=== PATIENT | female | born 1965 | race Caucasian/White ===

== ENCOUNTER 2022-05-24 17:57 | Observation (INO) ==
[2022-05-24 19:58] LABS: Bacteria,Urine Few per hpf (None-Few); Bilirubin,Urine Moderate (Negative); Blood,Urine Negative (Negative); Clarity,Urine Clear (Clear); Color,Urine Dark-Yellow (Yellow); Glucose,Urine (UA) Normal (Normal); Ketones,Urine Negative (Negative); Leukocyte Esterase,Urine Negative (Negative); Mucus,Urine Few per lpf (None-Few); Nitrite,Urine Negative (Negative); PH,Urine 6.5 pH Units (5.0-8.0); Protein,Urine 30 mg/dL (Neg-Trace); Specific Gravity,Urine > 1.030 (1.010-1.025); Squamous Epithelial Cell,Urine Few per hpf (None-Few); Urobilinogen,Urine Normal (Normal)
[2022-05-24 20:03] LABS: Basophils % 0.2 %; Eosinophils % 0.2 %; Hematocrit 42.4 % (35.3-44.9); Hemoglobin 14.2 g/dL (11.5-15.4); Immature Granulocytes % 0.4 % (0-4); Lymphocytes # 1.2 K/mcL (0.6-4.6); Lymphocytes % 10.1 %; Mean Corpuscular HGB Conc 33.5 g/dL (31.6-35.5); Mean Corpuscular Hemoglobin 32.4 pg (28.0-33.3); Mean Corpuscular Volume 96.8 fL (83.0-100.0); Monocytes # 0.9 K/mcL (0.0-1.3); Monocytes % 6.9 %; Neutrophils # 10.1 K/mcL (1.6-8.9); Platelet Count 238 K/mcL (140-400); Red Blood Count 4.38 M/mcL (3.82-4.97); Segmented Neutrophils % 82.2 %; White Blood Count 12.2 K/mcL (4.3-11.1)
[2022-05-24 20:22] LABS: BUN/Creatinine Ratio 9 (6-26); Blood Urea Nitrogen 8 mg/dL (6-20); Calcium 10.2 mg/dL (8.6-10.3); Carbon Dioxide 28 mEq/L (23-29); Chloride 95 mEq/L (98-107); Glucose 184 mg/dL (70-105); Osmolality,Calculated 277 (280-300); Potassium 3.3 mEq/L (3.5-5.1); Sodium 132 mEq/L (136-145); eGFR For African Americans > 60 (> 60); eGFR For Non-African Americans > 60 (> 60)
[2022-05-24 21:11] LABS: Alanine Aminotransferase 453 Units/L (7-52); Albumin 4.4 g/dL (3.5-5.7); Albumin/Globulin Ratio 1.2 (1.1-2.2); Alkaline Phosphatase 373 Units/L (34-104); Aspartate Amino Transferase 177 Units/L (13-39); Bilirubin,Direct 5.3 mg/dL (0.0-0.2); Bilirubin,Indirect 2.9 mg/dL (0.0-1.0); Bilirubin,Total 8.2 mg/dL (0.3-1.0); Globulin 3.8 g/dL (2.4-3.5); Lipase 330 Units/L (11-82); Total Protein 8.2 g/dL (6.4-8.9)
[2022-05-24] MEDS ORDERED: 0.9 % Sodium Chloride 1,000 ML IVC ONE (22:04)
[2022-05-24] MEDS ORDERED: Ondansetron 4 MG/2 ML VIAL IVP PRN (22:33)
[2022-05-24] MEDS ORDERED: Naloxone 0.4 MG/ML INJ IVP PRN (22:33)
[2022-05-24] MEDS ORDERED: Piperacillin/Tazobactam 3.375 GM in 0.9 % Sodium Chloride Mini Bag 100 ML IVPB ONE (23:00)
[2022-05-24] MEDS ORDERED: 0.9 % Sodium Chloride 1,000 ML IVC SCH (23:45)
[2022-05-25] MEDS ORDERED: *HR* Dextrose 50 % in Water (Syg) 50 ML SYRINGE IVP PRN (00:38)
[2022-05-25] MEDS ORDERED: D5% in Water 1,000 ML IVC PRN (00:38)
[2022-05-25] MEDS ORDERED: 0.9 % Sodium Chloride 1,000 ML IVC ONE (00:38)
[2022-05-25] MEDS ORDERED: Dextrose Gel 15 GM/37.5 ML TUBE PO PRN ×2 (00:38)
[2022-05-25 02:04] LABS: Basophils % 0.2 %; Eosinophils # 0.1 K/mcL (0.0-0.6); Eosinophils % 0.7 %; Hematocrit 38.5 % (35.3-44.9); Immature Granulocytes % 0.4 % (0-4); Lymphocytes # 1.1 K/mcL (0.6-4.6); Lymphocytes % 11.2 %; Mean Corpuscular HGB Conc 32.7 g/dL (31.6-35.5); Mean Corpuscular Hemoglobin 32.2 pg (28.0-33.3); Mean Corpuscular Volume 98.5 fL (83.0-100.0); Mean Platelet Volume 11.9 fL (9.4-12.4); Monocytes # 0.9 K/mcL (0.0-1.3); Monocytes % 9.1 %; Neutrophils # 7.9 K/mcL (1.6-8.9); Platelet Count 206 K/mcL (140-400); Red Blood Count 3.91 M/mcL (3.82-4.97); Segmented Neutrophils % 78.4 %
[2022-05-25 02:16] LABS: INR 1.1; Prothrombin Time 12.3 Seconds (9.4-12.1)
[2022-05-25 02:18] LABS: Activated Partial Thrombo Time 35.6 Seconds (26.0-36.0)
[2022-05-25 02:19] LABS: Hemoglobin 12.6 g/dL (11.5-15.4)
[2022-05-25 02:46] LABS: Alanine Aminotransferase 365 Units/L (7-52); Albumin 3.7 g/dL (3.5-5.7); Albumin/Globulin Ratio 1.1 (1.1-2.2); Alkaline Phosphatase 318 Units/L (34-104); Aspartate Amino Transferase 134 Units/L (13-39); BUN/Creatinine Ratio 10 (6-26); Bilirubin,Total 6.7 mg/dL (0.3-1.0); Blood Urea Nitrogen 7 mg/dL (6-20); Calcium 9.3 mg/dL (8.6-10.3); Carbon Dioxide 28 mEq/L (23-29); Chloride 101 mEq/L (98-107); Chol/HDL Ratio 4.7 (0-4.9); Cholesterol 224 mg/dL (< 200); Globulin 3.3 g/dL (2.4-3.5); Glucose 132 mg/dL (70-105); HDL Cholesterol 48 mg/dL (40-59); LDL Cholesterol,Calculated 152 mg/dL (< 100); Osmolality,Calculated 284 (280-300); Potassium 3.5 mEq/L (3.5-5.1); Sodium 137 mEq/L (136-145); Triglycerides 122 mg/dL (< 150); eGFR For African Americans > 60 (> 60); eGFR For Non-African Americans > 60 (> 60)
[2022-05-25 06:04] LABS: Hepatitis B Surface Antigen Nonreactive (Nonreactive)
[2022-05-25 06:33] LABS: Hepatitis B Core IgM Nonreactive (Nonreactive); Hepatitis C Virus Antibody Nonreactive (Nonreactive)
[2022-05-25 06:35] LABS: Hepatitis A Antibody IgM Nonreactive (Nonreactive)
[2022-05-25] MEDS: Piperacillin/Tazobactam 3.375 GM in 0.9 % Sodium Chloride Mini Bag 100 ML IVPB SCH ×2 (08:48→18:02)
[2022-05-25] MEDS ORDERED: *HR* Labetalol 20 MG/4 ML SYRINGE IVP PRN ×2 (11:41→14:40)
[2022-05-25] MEDS ORDERED: Ringers Solution, Lactated 1,000 ML IVC SCH (11:45)
[2022-05-25] MEDS: Insulin LISPRO 300 UNITS/3 ML VIAL SUBQ SCH ×2 (12:27→18:55)
[2022-05-25] MEDS: DilTIAZem CD (24hr) 120 MG CAP.ER.24H PO SCH (15:00)
[2022-05-26] MEDS: Insulin LISPRO 300 UNITS/3 ML VIAL SUBQ SCH ×2 (00:22→05:51)
[2022-05-26] MEDS: Piperacillin/Tazobactam 3.375 GM in 0.9 % Sodium Chloride Mini Bag 100 ML IVPB SCH ×2 (00:22→07:42)
[2022-05-26 02:43] LABS: Alanine Aminotransferase 240 Units/L (7-52); Albumin 3.3 g/dL (3.5-5.7); Albumin/Globulin Ratio 1.1 (1.1-2.2); Alkaline Phosphatase 253 Units/L (34-104); Aspartate Amino Transferase 70 Units/L (13-39); BUN/Creatinine Ratio 13 (6-26); Bilirubin,Total 2.4 mg/dL (0.3-1.0); Blood Urea Nitrogen 8 mg/dL (6-20); Calcium 8.8 mg/dL (8.6-10.3); Carbon Dioxide 28 mEq/L (23-29); Chloride 103 mEq/L (98-107); Globulin 3.1 g/dL (2.4-3.5); Glucose 125 mg/dL (70-105); Osmolality,Calculated 284 (280-300); Sodium 137 mEq/L (136-145); Total Protein 6.4 g/dL (6.4-8.9); eGFR For African Americans > 60 (> 60); eGFR For Non-African Americans > 60 (> 60)
[2022-05-26] MEDS: DilTIAZem CD (24hr) 120 MG CAP.ER.24H PO SCH (07:42)
[2022-05-26 07:43] VITALS: BP 135/82; PULSE 89; TEMP 98.7; O2SAT 98
[2022-05-26] MEDS ORDERED: Pantoprazole 40 MG VIAL IVP SCH (09:00)
== END 2022-05-26 11:50 | disposition home or self-care (01) ==
LOC: 3ANU 17:57 → EMEROOARM 17:57 → SUATTDRO 22:36 → 3ANU 23:39
PROVIDERS: ADMIT Internal Medicine; ATTEND Internal Medicine